=== PATIENT | male | born 2000 | race Caucasian/White ===

== ENCOUNTER 2020-02-07 18:18 | Emergency (ER) | payer SELFPAY ==
[~2020-02-07] VITALS: Ht 170.2 cm; Wt 93.9 kg
[2020-02-07 18:25] VITALS: Ht 170.2 cm; Wt 93.9 kg
[2020-02-07 19:58] VITALS: BP 128/76
== END 2020-02-07 19:58 | disposition home or self-care (01) ==
LOC: ED 18:18
DX: R05 Cough (principal)